=== PATIENT | male | born 1965 | race African-American/Black ===

== ENCOUNTER 2016-06-06 11:39 | Emergency (ER) | payer OTHER ==
[~2016-06-06] VITALS: Ht 157.5 cm; Wt 100.1 kg
[~2016-06-06 11:39] MED LIST: CARDIZEM CD240 MG PO; ENDOCET 5-3251 EACH PO; GINKGO BILOBA60 M3 PO; GINSENG100 M2 PO; LOSARTAN POTASS25 MG PO; METHOCARBAMOL750 MG PO; MOBIC15 MG PO; OXYCODONE HCL10 MG PO; PERCOCET 5/31 TABLET PO; PRADAXA150 MG PO; ULTRAM50 MG PO
[2016-06-06] MEDS ORDERED: PERCOCET 10/1 TABLET PO (12:49)
[2016-06-06] MEDS ORDERED: WARFARIN SODIUM5 MG PO (12:49)
[2016-06-06 13:39] LABS: INTER. NORMALIZED RATIO 1.1; PROTHROMBIN TIME 10.9 (9.2-11.2); PTT 20.3 (25-32)
[2016-06-06 13:45] LABS: CHLORIDE 108 mEq/L (99-109); POTASSIUM 4.8 mEq/L (3.7-5.4); SODIUM 139 mEq/L (136-147)
[2016-06-06 13:47] LABS: GLUCOSE 113 mg/dL (70-99)
[2016-06-06 13:47] LABS: ADD MIUA? YES; BILIRUBIN NEGATIVE; BLOOD NEGATIVE; COLOR YELLOW ((YELLOW)); GLUCOSE (STRIP) NEGATIVE; KETONES NEGATIVE; LEUKOCYTES NEGATIVE; NITRITE NEGATIVE; PROTEIN (STRIP) 100; SPECIFIC GRAVITY 1.016 (1.000-1.030); UROBILINOGEN 0.2 MG/DL (0.2-1.0)
[2016-06-06 13:48] LABS: ANION GAP 13 MEQ/L (2-14)
[2016-06-06 13:51] LABS: GFR ESTIMATE (CALCULATED) > 59 mL/min/; UREA NITROGEN (BUN) 15 mg/dL (9-23)
[2016-06-06 13:51] LABS: BACTERIA NONE SEEN /HPF; EPITHELIAL CELLS NONE SEEN /HPF; MUCUS TRACE /LPF; RED BLOOD CELLS 0-5 /HPF (0-5); UCUL ADDED? NO; WHITE BLOOD CELLS 0-5 /HPF (0-5)
[2016-06-06] MEDS ORDERED: LIDODERM 5% P1 PATCH TD (14:21)
[2016-06-06 14:26] VITALS: BP 121/90
== END 2016-06-06 14:43 | disposition home or self-care (01) ==
LOC: EME 11:39 → RME 11:39
PROVIDERS: Physician Assistant
DX: M54.5 Low back pain (principal); Z98.890 Other specified postprocedural states; Z79.891 Long term (current) use of opiate analgesic; I48.91 Unspecified atrial fibrillation; T45.516A Underdosing of anticoagulants, initial encounter; Z91.128 Patient's intentional underdosing of medication regimen for other reason; F17.200 Nicotine dependence, unspecified, uncomplicated
CPT/HCPCS: 72110; 80048; 81003; 85027; 85610; 85730; 99281; 99284

== ENCOUNTER 2016-12-30 12:08 | Day surgery (SDC) | payer OTHER ==
[~2016-12-30] VITALS: Ht 157.5 cm; Wt 102.5 kg
[~2016-12-30 12:08] MED LIST changes: +LIDODERM 5% P1 PATCH TD; +PERCOCET 10/1 TABLET PO; +WARFARIN SODIUM5 MG PO
== END 2016-12-30 14:15 | disposition home or self-care (01) ==
LOC: PAIN 12:08 → SDC 12:30 → PAIN 12:30
DX: M47.816 Spondylosis without myelopathy or radiculopathy, lumbar region (principal); M54.5 Low back pain; G89.29 Other chronic pain; M43.16 Spondylolisthesis, lumbar region; I48.91 Unspecified atrial fibrillation; M79.1 Myalgia; Z79.891 Long term (current) use of opiate analgesic; Z79.01 Long term (current) use of anticoagulants; F17.210 Nicotine dependence, cigarettes, uncomplicated
CPT/HCPCS: J1030; J2250; J3010; S0020

== ENCOUNTER 2017-01-06 11:37 | Day surgery (SDC) | payer OTHER ==
[~2017-01-06] VITALS: Ht 152.4 cm; Wt 102.5 kg
[~2017-01-06 11:37] MED LIST changes: +VITAMIN D31000 UNIT PO
== END 2017-01-06 14:00 | disposition home or self-care (01) ==
LOC: PAIN 11:37 → SDC 12:30 → PAIN 12:30
DX: M47.816 Spondylosis without myelopathy or radiculopathy, lumbar region (principal); M54.5 Low back pain; G89.29 Other chronic pain; M43.16 Spondylolisthesis, lumbar region; M75.81 Other shoulder lesions, right shoulder; I48.91 Unspecified atrial fibrillation; Z79.891 Long term (current) use of opiate analgesic; Z79.01 Long term (current) use of anticoagulants; F17.200 Nicotine dependence, unspecified, uncomplicated
CPT/HCPCS: J1030; J2250; J3010; S0020

== ENCOUNTER → 2017-04-14 | Outpatient (CLI) | payer OTHER ==
[~2017-04-14] VITALS: Ht 157.5 cm; Wt 101.6 kg
[~2017-04-14] MED LIST changes: +GINSENG100 MG PO
[2017-04-14 14:00] LABS: INTER. NORMALIZED RATIO 1.2
== END | disposition home or self-care (01) ==
LOC: AMB 11:56
PROVIDERS: Internal Medicine
PROC: 0DBP8ZX Excision of Rectum, Via Natural or Artificial Opening Endoscopic, Diagnostic (ICD-10-PCS; principal; 2017-04-14)
DX: Z12.11 Encounter for screening for malignant neoplasm of colon (principal); D12.8 Benign neoplasm of rectum; K57.30 Diverticulosis of large intestine without perforation or abscess without bleeding; I48.1 Persistent atrial fibrillation; Z79.01 Long term (current) use of anticoagulants; I10 Essential (primary) hypertension; M47.818 Spondylosis without myelopathy or radiculopathy, sacral and sacrococcygeal region; F17.200 Nicotine dependence, unspecified, uncomplicated; Z80.0 Family history of malignant neoplasm of digestive organs
CPT/HCPCS: 85610; 88305; 93005; J2250; J3010

== ENCOUNTER 2017-06-16 23:01 | Emergency (ER) | payer OTHER ==
[~2017-06-16] VITALS: Ht 157.5 cm; Wt 100.9 kg
[2017-06-17 00:15] LABS: BASOPHIL (%) 0.5 % (0-1); EOSINOPHIL (%) 1.1 % (0-5); EOSINOPHIL COUNT 0.1 K/uL (0-0.3); HEMATOCRIT 42.2 % (38.0-50.0); HEMOGLOBIN 13.8 G/DL (12.5-16.6); IMMATURE GRANULOCYTE (%) 0.3 % (0.0-0.7); LYMPHOCYTE (%) 40.2 % (15-42); LYMPHOCYTE COUNT 2.7 K/uL (1.0-2.8); MCH 25.6 PG (29.0-34.0); MCHC 32.7 G/DL (30.0-36.0); MCV 78.1 FL (86-99); MONOCYTE (%) 10.5 % (3-12); MONOCYTE COUNT 0.7 K/uL (0-0.8); NEUTROPHIL (%) 47.4 % (45-76); NEUTROPHIL COUNT 3.2 K/uL (1.8-6.4); PLATELET COUNT 282 K/uL (156-360); RBC DIS.WIDTH-CV 15.4 % (11.8-14.6); RBC DIS.WIDTH-SD 43.7 % (39-53); WHITE BLOOD COUNT 6.6 K/uL (4.1-10.2)
[2017-06-17 00:25] LABS: CHLORIDE 109 mEq/L (99-109); POTASSIUM 4.1 mEq/L (3.7-5.4); SODIUM 140 mEq/L (136-147)
[2017-06-17 00:27] LABS: GLUCOSE 111 mg/dL (70-99)
[2017-06-17 00:31] LABS: CREATININE 0.9 mg/dL (0.6-1.3); GFR ESTIMATE (CALCULATED) > 59 mL/min/ (58.99-99999)
[2017-06-17 00:32] LABS: UREA NITROGEN (BUN) 14 mg/dL (9-23)
[2017-06-17 00:34] LABS: URIC ACID 8.6 mg/dL (3.1-9.2)
[2017-06-17 00:40] LABS: TROP-I INTERPRETATION NEGATIVE; TROPONIN-I < 0.01 ng/mL (0.0-0.30)
[2017-06-17] MEDS ORDERED: COLCHICINE0.6 M1 PO (01:57)
[2017-06-17] MEDS ORDERED: INDOMETHACIN25 MG PO (01:57)
[2017-06-17 02:26] VITALS: BP 131/94
== END 2017-06-17 02:27 | disposition home or self-care (01) ==
LOC: EME → EDBD 23:01 → EME 23:01
PROVIDERS: Emergency Medicine
DX: M10.9 Gout, unspecified (principal); I48.91 Unspecified atrial fibrillation; I10 Essential (primary) hypertension; F17.200 Nicotine dependence, unspecified, uncomplicated; Z88.6 Allergy status to analgesic agent; Z79.01 Long term (current) use of anticoagulants
CPT/HCPCS: 73564; 73630; 80048; 82948; 84484; 84550; 85025; 93005; 99281; 99284; J3010; J7030